=== PATIENT | female | born 1950 | race Caucasian/White ===

== ENCOUNTER 2017-03-04 08:52 | Emergency (ER) | payer OTHER, MEDICARE ==
[2017-03-04 09:05] VITALS: TEMP 97.5
[2017-03-04] MEDS ORDERED: IBUPROFEN 600 MG TAB PO ONE (09:25)
[2017-03-04] MEDS ORDERED: IBUPROFEN 200 MG TAB PO ONE ×2 (09:27→09:29)
--- NOTE | 2017-03-04 09:27 | EDPHY ---
H & P Time Seen by Provider: 03/04/17 08:57 HPI/ROS: CHIEF COMPLAINT: Left wrist pain History by patient HISTORY OF PRESENT ILLNESS: 58-year-old woman presents complaining of pain in her left wrist after falling when slipping on ice in the knee on an outstretched wrist. She says she felt something go crunch. She denies any numbness or tingling. She denies hitting her head or other pain or injury. She has not taken anything for the pain yet. This happened just prior to arrival. REVIEW OF SYSTEMS: As in HPI, and all other systems reviewed and are negative Smoking Status: Never smoked Physical Exam: General Appearance: Alert and no distress. Eyes: Pupils equal and round no injection. Musculoskeletal: Neck is supple and nontender. Extremities: Left wrist with positive swelling and decreased range of motion secondary to pain, distal cap refill and sensation intact, wiggles fingers with paim, positive tenderness to distal radius, no ulnar tenderness. No elbow tenderness Skin: No rashes or lesions except as described above. Constitutional: Initial Vital Signs Temperature (C) 36.4 C 03/04/17 09:03 Heart Rate 71 03/04/17 09:03 Respiratory Rate 18 03/04/17 09:03 Blood Pressure 141/96 H 03/04/17 09:03 O2 Sat (%) 96 03/04/17 09:03 O2 Delivery Mode Room Air Allergies/Adverse Reactions: No Known Allergies Allergy (Unverified 03/04/17 09:03) Home Medications: Medication Instructions Recorded Hydrocodone/APAP 5/325 [[place] 1 - 2 tab PO Q4H PRN #10 tab 03/04/17 5/325 (*)] Lisinopril 03/04/17 MDM/Departure - MDM Imaging Results: Imaging Impressions Wrist X-Ray 03/04/17 09:05 Impression: 1. Complex fragmented distal left radial fracture with intra-articular involvement and mild dorsal displacement. 2. Nondisplaced fracture ulnar styloid. Medications Given: Discontinued Medications Ibuprofen (Motrin) 600 mg PO EDNOW ONE Stop: 03/04/17 09:26 Last Admin: 03/04/17 09:30 Dose: Not Given Ibuprofen (Motrin) 600 mg PO EDNOW ONE Stop: 03/04/17 09:30 Last Admin: 03/04/17 09:31 Dose: 600 mg ED Course/Re-evaluation: 58-year-old woman presents with pain and left wrist an x-ray reveals minimally displaced c comminuted distal radius fracture and nondisplaced ulnar styloid fracture. Patient was given oral ibuprofen for her pain with good relief. She declined stronger pain medicines. We were unable to reach orthopedic consult by phone despite several attempts. Patient was placed in a sugar-tong splint and sling. I examined the patient after the splint was placed and neurovascular status was intact and the splint was in proper position. She is discharged home with orthopedic referral as soon as possible. We discussed home care and need for Ortho follow-up. Patient is discharged home with ibuprofen and Meth[place] as needed for pain. - Depart Disposition: Home, Routine, Self-Care Clinical Impression: Distal radius fracture, left Qualifiers: Encounter type: initial encounter Fracture type: closed Fracture morphology: unspecified fracture morphology Qualified Code(s): S52.502A - Unspecified fracture of the lower end of left radius, initial encounter for closed fracture Fracture of ulnar styloid Qualifiers: Encounter type: initial encounter Fracture type: closed Fracture alignment: nondisplaced Laterality: left Qualified Code(s): S52.615A - Nondisplaced fracture of left ulna styloid process, initial encounter for closed fracture Clinical Impression: (Ruled Out): Left wrist fracture Condition: Good Instructions: Hydrocodone/Acetaminophen (By mouth), Wrist Fracture in Adults ( ED) Additional Instructions: You were seen by Dr. Genet Henriquez today. You have fracture of your left distal radius and the ulnar styloid. Please follow up with orthopedic surgeon, Dr. Bolanos as soon as possible. Keep your wrist elevated above the level of the heart and use ice. You may take ibuprofen 600 mg 4 times a day as needed for pain and Meth[place] as needed for severe pain. Return for any worsening or new concerns. Prescriptions: Hydrocodone/APAP 5/325 [[place] 5/325 (*)] 1 - 2 tab PO Q4H PRN #10 tab PRN Reason: Pain, Moderate Referrals: Reinier Fowler MD [Primary Care Provider] - As per Instructions Michael Bolanos MD [Medical Doctor] - As per Instructions
[2017-03-04 13:34] VITALS: BP 137/63; PULSE 92; RESP 16; O2SAT 95
== END 2017-03-04 13:00 | disposition home or self-care (01) ==
LOC: CED 08:52
DX: S52.615A Nondisplaced fracture of left ulna styloid process, initial encounter for closed fracture (principal); S52.572A Other intraarticular fracture of lower end of left radius, initial encounter for closed fracture; W01.0XXA Fall on same level from slipping, tripping and stumbling without subsequent striking against object, initial encounter
CPT/HCPCS: 73110-PO